=== PATIENT | female | born 1985 | race Caucasian/White ===

== ENCOUNTER 2016-11-16 00:24 | Inpatient (IN) | payer BC ==
[2016-11-16] MEDS ORDERED: Misoprostol 200 MCG Tab PO PRN (00:42)
[2016-11-16] MEDS ORDERED: Lidocaine 1% 50 ML MDV INJECT PRN (00:42)
[2016-11-16] MEDS ORDERED: Water For Irrigation,Sterile 1,000 ML Container IRR PRN (00:42)
[2016-11-16] MEDS ORDERED: Nalbuphine 10 MG/1 ML Vial IVPUSH PRN (00:42)
[2016-11-16] MEDS ORDERED: Methylergonovine 0.2 MG/1 ML Amp IM PRN (00:42)
[2016-11-16] MEDS ORDERED: Carboprost Tromethamine 250 MCG/1 ML Amp IM PRN (00:42)
[2016-11-16] MEDS ORDERED: Sodium Chloride 0.9% 10 ML Syringe FLUSH PRN (00:42)
[2016-11-16] MEDS ORDERED: Sodium Chloride 0.9% 2.5 ML Syringe FLUSH PRN (00:42)
[2016-11-16] MEDS ORDERED: Butorphanol 1 MG/ML SDV IVPUSH PRN (00:42)
[2016-11-16] MEDS ORDERED: Oxytocin/Lactated Ringers 30 UNIT/500 ML BAG IV SCH (00:45)
[2016-11-16] MEDS: Lactated Ringers 1,000 ML IV SCH ×4 (00:54→05:03)
--- NOTE | 2016-11-16 01:31 | PCM.PREANE ---
Preanesthetic Assessment - ANESTHESIA/TRANSFUSION/FAMILY HX Anesthesia/Transfusion History: Prior Anesthesia (GA) Family History of Anesthesia Reaction: No - REVIEW OF SYSTEMS Constitutional: Reports: no symptoms PRINCIPAL TECHNOLOGIST: Reports: no symptoms Respiratory: Reports: no symptoms Cardiovascular: Reports: no symptoms GI: Reports: no symptoms Other: Reports: none - PHYSICAL ASSESSMENT HR: 109 O2 Sat by Pulse Oximetry: 99 RR: 24 BP: 147/85 Height: 5 ft 8.4 in Weight: 71.214 kg ASA Class: 2 Mental Status: alert & oriented x3 Airway Class: Mallampati = 2 Dentition: Reports: normal dentition Thyro-Mental Finger Breadths: 3 Mouth Opening Finger Breadths: 3 ROM/Head Extension: full Respiratory Status: lungs clear to auscultation bilaterally Cardiovascular Status: regular rate & rhythm, normal S1, S2, no murmur, blood pressure WNL - ALLERGIES Allergies/Adverse Reactions: Allergies Allergy/AdvReac Type Severity Reaction Status Date / Time Penicillins Allergy Hives Verified 07/19/14 01:29 - ANESTHESIA PLAN Free Text/Narrative:: Labs Pending Anesthesia Type Planned: epidural - ACKNOWLEDGEMENTS Pt an appropriate candidate for the planned anesthesia: Yes Alternatives and risks of anesthesia discussed w pt/guardian: Yes Pt/Guardian understands and agree with anesthesia plan: Yes PreAnesthesia Questionnaire - Past Health History Medical/Surgical History: Denies Medical/Surgical History HEENT History: Reports: None Cardiovascular History: Reports: None Respiratory History: Reports: None Gastrointestinal History: Reports: GERD Genitourinary History: Reports: None 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: Reports: : 3 Para: 1 LMP (Approximate): Musculoskeletal History: Reports: None Neurological History: Reports: None Psychiatric History: Reports: None Endocrine/Metabolic History: Reports: None Hematologic History: Reports: None Immunologic History: Reports: None Oncologic (Cancer) History: Reports: None Dermatologic History: Reports: None - Infectious Disease History Infectious Disease History: Reports: None - Past Surgical History Female Surgical History: Reports: Breast implant - SUBSTANCE USE Smoking Status *Q: Never Smoker Second Hand Smoke Exposure: No Days Per Week of Alcohol Use: 0 Recreational Drug Use History: No - HOME MEDS Home Medications: Home Meds Ondansetron [Zofran] 1 tab PO QID PRN 05/31/14 [History] PNV95/Ferrous Fumarate/FA [ Multivitamins] 07/19/14 [History] Acetaminophen [Tylenol Extra Strength] 1,000 mg PO Q4H PRN #1 tab 12/21/14 [Rx] Lanolin [Lansinoh HPA] 1 g TOP ASDIRECTED PRN #1 crm 12/21/14 [Rx] - CURRENT (IN HOUSE) MEDS Current Meds: Current Medications Butorphanol Tartrate (Stadol) 1 mg IVPUSH Q1H PRN PRN Reason: Pain Carboprost Tromethamine (Hemabate Ds) 250 mcg IM ASDIRECTED PRN PRN Reason: Post Hemorrhage Lactated Ringer's (Ringers, Lactated) 1,000 mls @ 150 mls/hr IV ASDIRECTED ABDULLAHI Last Admin: 11/16/16 01:28 Dose: 999 mls/hr Lidocaine HCl (Xylocaine 1%) 50 ml INJECT .ONCE PRN PRN Reason: Laceration repair Methylergonovine Maleate (Methergine) 0.2 mg IM ASDIRECTED PRN PRN Reason: Post Hemorrhage Misoprostol (Cytotec) 200 mcg PO .ONCE PRN PRN Reason: Post Hemorrhage Nalbuphine HCl (Nubain) 10 mg IVPUSH Q1H PRN PRN Reason: Pain (severe 7-10) Stop: 11/16/16 02:43 Sodium Chloride (Saline Flush) 10 ml FLUSH ASDIRECTED PRN PRN Reason: Keep Vein Open Sodium Chloride (Saline Flush) 2.5 ml FLUSH ASDIRECTED PRN PRN Reason: Keep Vein Open Sterile Water (Sterile Water For Irrigation) 1,000 ml IRR ASDIRECTED PRN PRN Reason: delivery Discontinued Medications Oxytocin/Lactated Ringer's (Pitocin In Lr 30 Units/500 Ml) 30 unit in 500 mls @ 999 mls/hr IV TITRATE ABDULLAHI; 999 MUNITS/MIN PRN Reason: Protocol Stop: 11/16/16 01:16
[2016-11-16] MEDS ORDERED: fentaNYL 100 MCG/2 ML SDV ONE (01:39)
[2016-11-16] MEDS ORDERED: Ropivacaine HCl/PF 100 ML ONE (01:39)
[2016-11-16] MEDS ORDERED: Oxytocin/Lactated Ringers 30 UNIT/500 ML BAG ONE (04:58)
[2016-11-16] MEDS ORDERED: Bisacodyl 10 MG Supp RECTAL PRN (06:27)
[2016-11-16] MEDS ORDERED: Witch Hazel Medicated Pads 40/Jar TOP PRN (06:27)
[2016-11-16] MEDS ORDERED: Docusate Sodium 100 MG Cap PO PRN (06:27)
[2016-11-16] MEDS ORDERED: oxyCODONE 5 MG Tab PO PRN (06:27)
[2016-11-16] MEDS ORDERED: Lanolin 100% Cream 7 GM Tube TOP PRN (06:27)
[2016-11-16] MEDS ORDERED: Benzocaine/Menthol 20%-0.5% Spray 78 GM Cannister TOP PRN (06:27)
[2016-11-16] MEDS: Ibuprofen 800 MG Tab PO PRN ×2 (11:06→19:31)
[2016-11-16] MEDS: Acetaminophen 500 MG Tab PO PRN (22:30)
[2016-11-17] MEDS: Ibuprofen 800 MG Tab PO PRN (05:22)
--- NOTE | 2016-11-17 06:16 | OR ---
SURGEON: Marci Del Castillo M.D. DATE OF PROCEDURE: 11/16/2016 PREOPERATIVE DIAGNOSES: Thirty-nine week intrauterine , active spontaneous labor. POSTOPERATIVE DIAGNOSES: Thirty-nine week intrauterine , active spontaneous labor. PROCEDURE: Term spontaneous vaginal delivery. ANESTHESIA: Epidural. ESTIMATED BLOOD LOSS: Less than 300 mL. FINDINGS: Live born male, score 7 and 9, weighing 3370 g. Placenta spontaneous, Schultze intact with 3 vessels. Perineum intact. BRIEF HISTORY: This is a 31-year-old female. She is G3, P1-0-1-1. She presents in active spontaneous labor, 6 cm dilated, category 1 heart tones, group B strep negative. She was admitted to Labor and Delivery for labor management. She received an epidural for pain control. She had spontaneous rupture of membranes when she was approximately 7 cm dilated. She progressed to complete. DESCRIPTION OF PROCEDURE: With the patient in dorsal lithotomy position, under adequate epidural analgesia, the patient pushed over a 15-minute time period to a 5+ station, at which time the head was delivered spontaneously and atraumatically over the perineum with support, with subsequent delivery of the 's shoulders and body without any difficulty. The infant was bulb suctioned by nose and mouth. The cord was clamped x2 and cut and handed to the mother in the presence of the nurse attending delivery. The infant was a liveborn male, score 7 and 9, weighing 3370 g. Cord blood was collected for cord ABGs as well as routine cord blood sampling. Pitocin was initiated after delivery of the infant to assist with delivery of the placenta which was delivered spontaneously, Schultze intact with 3 vessels. Upon inspection of the pelvis and perineum, there were no periurethral, vaginal sidewall, cervical, rectal, or perineal lacerations. EBL was less than 300 mL. There were no known complications. and mother are in LDRP in good condition. VIRIDIANA / AMANDA /[id number] SAIDA
--- NOTE | 2016-11-17 07:35 | PCM48HPAN ---
Post Anesthesia Note - EVALUATION WITHIN 48HRS OF ANESTHETIC Vital Signs in Normal Range: Yes Patient Participated in Evaluation: Yes Respiratory Function Stable: Yes Airway Patent: Yes Cardiovascular Function Stable: Yes Hydration Status Stable: Yes Pain Control Satisfactory: Yes Nausea and Vomiting Control Satisfactory: Yes Mental Status Recovered: Yes
[2016-11-17 08:23] VITALS: BP 123/76
--- NOTE | 2016-11-17 09:10 | PCM.PNPP ---
- General Info Date of Service: 11/17/16 Functional Status: Reports: pain controlled, tolerating diet, ambulating, urinating - Review of Systems General: Denies: Fever, Weakness, Fatigue, Malaise Pulmonary: Denies: shortness of breath, pleuritic chest pain, cough Cardiovascular: Denies: Chest Pain, Palpitations, Dyspnea on Exertion Genitourinary: Denies: dysuria, incontinence Neurological: Denies: Confusion, Headache Psychiatric: Denies: depression, mood lability, anxiety - General Info Date of Service: 11/17/16 - Patient Data Vital Signs - most recent: Last Vital Signs Temp 36.7 C 11/17/16 08:00 Pulse 79 11/17/16 08:00 Resp 17 11/17/16 08:00 BP 123/76 11/17/16 08:00 Pulse Ox 96 11/17/16 08:00 Weight - most recent: 157 lb Lab Results - last 24 hrs: Laboratory Results - last 24 hr 11/17/16 Range/Units 04:58 Hgb 10.4 L (12.0-16.0) g/dL Hct 32.1 L (36.0-46.0) % Med Orders - Current: Current Medications Acetaminophen (Tylenol Extra Strength) 1,000 mg PO Q4H PRN PRN Reason: Pain Last Admin: 11/16/16 22:30 Dose: 1,000 mg Benzocaine/Menthol (Dermoplast Pain Relief 20%-0.5% Plato) 78 gm TOP ASDIRECTED PRN PRN Reason: Perineal Comfort Measure Bisacodyl (Dulcolax) 10 mg RECTAL .ONCE PRN PRN Reason: Constipation Docusate Sodium (Colace) 100 mg PO BID PRN PRN Reason: Constipation Last Admin: 11/16/16 22:31 Dose: 100 mg Emollient Ointment (Lansinoh Hpa) 0 gm TOP ASDIRECTED PRN PRN Reason: Sore Nipples Ibuprofen (Motrin) 800 mg PO Q6H PRN PRN Reason: Pain Last Admin: 11/17/16 05:22 Dose: 800 mg Oxycodone HCl (Oxycodone) 5 mg PO Q2H PRN PRN Reason: Pain Witch Eloina (Tucks) 1 pad TOP ASDIRECTED PRN PRN Reason: comfort care Discontinued Medications Butorphanol Tartrate (Stadol) 1 mg IVPUSH Q1H PRN PRN Reason: Pain Carboprost Tromethamine (Hemabate Ds) 250 mcg IM ASDIRECTED PRN PRN Reason: Post Hemorrhage Fentanyl (Sublimaze) Confirm Administered Dose 100 mcg .ROUTE .[employer] ONE Stop: 11/16/16 01:40 Last Admin: 11/16/16 20:17 Dose: Not Given Lactated Ringer's (Ringers, Lactated) 1,000 mls @ 150 mls/hr IV ASDIRECTED ABDULLAHI Last Admin: 11/16/16 05:03 Dose: 150 mls/hr Oxytocin/Lactated Ringer's (Pitocin In Lr 30 Units/500 Ml) 30 unit in 500 mls @ 999 mls/hr IV TITRATE ABDULLAHI; 999 MUNITS/MIN PRN Reason: Protocol Stop: 11/16/16 01:16 Last Titration: 11/16/16 06:26 Dose: Infused Ropivacaine (Naropin 0.2%) Confirm Administered Dose 100 mls @ as directed .ROUTE .[employer] [place] [employer] [place] ONE Stop: 11/16/16 01:40 Last Admin: 11/16/16 20:17 Dose: Not Given Oxytocin/Lactated Ringer's (Pitocin In Lr 30 Units/500 Ml) Confirm Administered Dose 30 unit in 500 mls @ as directed .ROUTE .[employer] [place] ONE Stop: 11/16/16 04:59 Last Admin: 11/16/16 20:17 Dose: Not Given Lidocaine HCl (Xylocaine 1%) 50 ml INJECT .ONCE PRN PRN Reason: Laceration repair Methylergonovine Maleate (Methergine) 0.2 mg IM ASDIRECTED PRN PRN Reason: Post Hemorrhage Misoprostol (Cytotec) 200 mcg PO .ONCE PRN PRN Reason: Post Hemorrhage Nalbuphine HCl (Nubain) 10 mg IVPUSH Q1H PRN PRN Reason: Pain (severe 7-10) Stop: 11/16/16 02:43 Sodium Chloride (Saline Flush) 10 ml FLUSH ASDIRECTED PRN PRN Reason: Keep Vein Open Sodium Chloride (Saline Flush) 2.5 ml FLUSH ASDIRECTED PRN PRN Reason: Keep Vein Open Sterile Water (Sterile Water For Irrigation) 1,000 ml IRR ASDIRECTED PRN PRN Reason: delivery Last Admin: 11/16/16 06:25 Dose: 1,000 ml - Infant Interaction Infant Disposition, : [place] to Nursery Infant Feeding: Breastfed Infant; Nursed Well, Continues to Breastfeed Support Person: - Recovery Exam Fundal Tone: Firm Fundal Level: 1 Fingerbreadths Below Umbilicus Fundal Placement: Midline Lochia Amount: Scant Lochia Color: Rubra/Red Perineum Description: Intact, Minimal Bruising/Swelling Episiotomy/Laceration: Approximated Bladder Status: Voiding Urinary Elimination: Voided - Exam General: alert, oriented Lungs: Clear to auscultation, Normal respiratory effort Cardiovascular: regular rate, regular rhythm Abdomen: bowel sounds present, soft, no tenderness, no distension Extremities: no calf tenderness, edema Skin: warm Psy/Mental Status: alert, normal affect, normal mood - Problem List & Annotations (1) Vaginal delivery SNOMED Code(s): 281242924 Code(s): O80 - ENCOUNTER FOR FULL-TERM UNCOMPLICATED DELIVERY Status: Acute Current Visit: No - Problem List Review Problem List Initiated/Reviewed/Updated: Yes - Assessment Assessment:: PPD#1 s/p , stable and afebrile - Plan Plan:: Discharge instructions reviewed Nothing in the vagina for 6 weeks Bleeding and infection precautions reviewed Continue PNV Follow up in 6 weeks
[2016-11-17] MEDS: Acetaminophen 500 MG Tab PO PRN (09:19)
== END 2016-11-17 10:53 | disposition home or self-care (01) | DRG 560 ==
LOC: MW.OBCHECK 00:24 → MW.OB 00:28 → MW.OBCHECK 00:42 → OBSVTOIN 05:55 → MW.OB 11:13
PROVIDERS: ADMIT Obstetrics & Gynecology; ATTEND Obstetrics & Gynecology
PROC: 10E0XZZ Delivery of Products of Conception, External Approach (ICD-10-PCS; principal; 2016-11-16)
DX: O80 Encounter for full-term uncomplicated delivery (principal); Z3A.39 39 weeks gestation of pregnancy; Z37.0 Single live birth
CPT/HCPCS: 01967; 36415; 59025; 85014; 85018; 85027; 86850; 86900; 86901; A9270-GY; J2795; J3010; J7120